=== PATIENT | female | born 1970 | race Caucasian/White ===

== ENCOUNTER 2017-12-22 18:22 | Emergency (ER) | payer OTHER ==
--- NOTE | 2017-12-22 18:38 | PDOC ---
Rapid Medical Evaluation Time Seen by Provider: 12/22/17 18:33 Medical Evaluation: I have performed a brief in-person evaluation of this patient. The patient presents with a chief complaint of: cough, fever, sore throat, pain with deep inspiration x 3 days Pertinent physical exam findings: persist dry cough, tachycardic I have ordered the following: ekg, hcg, cxr The patient will proceed to the ED for further evaluation.
[2017-12-22 18:41] VITALS: BP 116/64; PULSE 101; TEMP 98.4; BMI 20.1
--- NOTE | 2017-12-22 19:23 | PDOC ---
History of Present Illness - General History Source: Patient Exam Limitations: No Limitations - History of Present Illness Initial Comments: 12/22/17 23:25 The patient is a 47 year old female with no significant past medical history who presents to the emergency department for evaluation of chest pain. The patient reports a 3 day history of moderate chest pain. The patient describes the chest pain as a pressure radiating to her back, which is exacerbated with inspiration, ranked 7/10 in severity. She reports throat pain which began yesterday. The patient reports associated symptoms of shortness productive cough (white sputum), fever, nausea, night sweats, and rhinorrhea. She reports t _max of 101 yesterday. She reports taking tylenol with mild alleviation and 2 amoxicillin from [place] for her throat pain. Allergies: NKDA Social history: Patient admits to social alcohol consumption. No reported cigarette or drug use. PCP: Dr. Steele <Mendel Burnette - Last Filed: 12/22/17 23:25> <James Crandall - Last Filed: 12/23/17 00:30> - General Chief Complaint: Respiratory Stated Complaint: COLD SYMPTOMS Time Seen by Provider: 12/22/17 18:33 Past History <Mendel Burnette - Last Filed: 12/22/17 23:25> - Suicide/Smoking/Psychosocial Hx Smoking History: Never smoked Hx Alcohol Use: No Drug/Substance Use Hx: No <James Crandall - Last Filed: 12/23/17 00:30> - Past Medical History Allergies/Adverse Reactions: Allergies Allergy/AdvReac Type Severity Reaction Status Date / Time No Known Allergies Allergy Verified 12/22/17 18:34 Home Medications: Ambulatory Orders Azithromycin [Zithromax 250mg Tablets -] 250 mg PO UTDICT #6 tab 12/23/17 Review of Systems - Review of Systems Able to Perform ROS?: Yes Comments:: CONSTITUTIONAL: (+)fever. no chills, no fatigue EYES: No visual changes ENT: (+)throat pain. No ear pain. CARDIOVASCULAR: (+)chest pain. no palpitations RESPIRATORY: (+)SOB. (+) cough. GI: (+)Nausea. No abdominal pain, no vomiting, no constipation, no diarrhea GENITOURINARY: No dysuria, no frequency, no hematuria MUSCULOSKELETAL: (+)Back pain. No joint pain, no myalgias SKIN: No rash NEURO: No headache <CachorromattMendel - Last Filed: 12/22/17 23:25> *Physical Exam - Vital Signs Last Vital Signs Temp Pulse Resp BP Pulse Ox 98.4 F 101 H 20 116/64 100 12/22/17 18:35 12/22/17 18:35 12/22/17 18:35 12/22/17 18:35 12/22/17 18:35 - Physical Exam Comments: CONSTITUTIONAL: Well-appearing; well-nourished; in no apparent distress HEAD: Normocephalic; atraumatic EYES: PERRL; EOM intact ENMT: (+)Minimal erythema of oropharynx. (+)Enlarged bilateral anterior cervical lymphadenopathy. NECK: Supple; non-tender; no cervical lymphadenopathy CARD: Normal S1, S2; no murmurs, rubs, or gallops RESP: Normal chest excursion with respiration; breath sounds clear and equal bilaterally; no wheezes, rhonchi, or rales CHEST: (+)Reproducible bilateral tenderness to peristernal area. ABD: Soft, non-distended; non-tender; no palpable organomegaly, no palpable hernias EXT: Normal ROM in all four extremities; non-tender to palpation; distal pulses intact SKIN: Warm, dry, no rash NEURO: No focal neurological deficiencies. <CachorromattMendel - Last Filed: 12/22/17 23:25> - Vital Signs Last Vital Signs Temp Pulse Resp BP Pulse Ox 98.4 F 101 H 20 116/64 100 12/22/17 18:35 12/22/17 18:35 12/22/17 18:35 12/22/17 18:35 12/22/17 18:35 <James Crandall - Last Filed: 12/23/17 00:30> Heart Score/ECG Review - ECG Impressions Comment:: EKG was reviewed by Dr. Crandall at 19:00. Impression: Normal sinus rhythm. Normal ECG. Vent. rate: 91 bpm [place] interval: 128 ms QRS duration: 92 ms QT/QTc: 374/460 ms PRT axes: 58 66 34 <Mendel Burnette - Last Filed: 12/22/17 23:25> ED Treatment Course - LABORATORY CBC & Chemistry Diagram: 12/22/17 22:24 12/22/17 22:24 - ADDITIONAL ORDERS Additional order review: Laboratory Results 12/22/17 12/22/17 22:24 19:37 Sodium 140 Potassium 3.4 L Chloride 107 Carbon Dioxide 27 Anion Gap 6 L BUN 6 L Creatinine 0.5 L Creat Clearance w eGFR > 60 Random Glucose 112 H Calcium 8.0 L Total Bilirubin 0.1 L AST 18 ALT 25 Alkaline Phosphatase 94 Creatine Kinase 60 Troponin I < 0.02 Total Protein 6.9 Albumin 3.4 Urine HCG, Qual Negative 12/22/17 20:11 Influenza Types A,B Antigen (LUCY) - Final Nasopharyngeal Swab - Final 12/22/17 22:24 RBC 3.92 MCV 90.0 MCHC 33.9 RDW 14.2 MPV 8.4 Neutrophils % 55.8 Lymphocytes % 26.7 Monocytes % 9.9 Eosinophils % 6.6 H Basophils % 1.0 <Mendel Burnette - Last Filed: 12/22/17 23:25> - LABORATORY CBC & Chemistry Diagram: 12/22/17 22:24 12/22/17 22:24 <James Crandall - Last Filed: 12/23/17 00:30> Medical Decision Making - Medical Decision Making 12/23/17 00:29 Patient is a 47-year-old female who presents with pleuritic atraumatic bilateral chest wall pain productive cough and fever for the past 3 days. In the ER, patient is awake and alert, nontoxic appearing, with normal stable vital signs. EKG is within normal limit without evidence of ischemia. Chest x- ray reveals no evidence of cardiomegaly/infiltrate or effusion. CBC/CMP/cardiac profile negative. I do not suspect ACS or PE at this time. Acute bronchitis suspected. We'll discharge with Zithromax with NSAIDs with outpatient follow-up. <James Crandall - Last Filed: 12/23/17 00:30> *DC/Admit/Observation/Transfer - Attestations Scribe Attestion: Documentation prepared by Mendel Burnette, acting as registered medical assistant for James Crandall MD. <Mendel Burnette - Last Filed: 12/22/17 23:25> - Discharge Dispostion Decision to Admit order: No - Attestations Physician Attestion: 12/23/17 00:29 The documentation was prepared by the scribe under my direct supervision. I have reviewed the documentation which correctly represents the findings, medical decision-making and critical action taken by me. <James Crandall - Last Filed: 12/23/17 00:30> Diagnosis at time of Disposition: Chest wall pain Acute bronchitis Qualifiers: Bronchitis organism: unspecified organism Qualified Code(s): J20.9 - Acute bronchitis, unspecified - Discharge Dispostion Disposition: HOME Condition at time of disposition: Stable - Prescriptions Prescriptions: Azithromycin [Zithromax 250mg Tablets -] 250 mg PO UTDICT #6 tab - Referrals Referrals: Ernie Steele PA [Primary Care Provider] - - Patient Instructions Printed Discharge Instructions: DI for Acute Bronchitis, DI for Atypical Chest Pain - Post Discharge Activity
[2017-12-22 22:36] LABS: EOS % 6.6 % (0-4.5); HEMATOCRIT 35.2 % (32.4-45.2); HEMOGLOBIN 11.9 GM/dL (10.7-15.3); LYMPH % 26.7 % (8-40); MCH 30.5 pg (25.7-33.7); MCHC 33.9 g/dl (32.0-36.0); MEAN PLT VOLUME 8.4 fl (7.5-11.1); MONO % 9.9 % (3.8-10.2); NEUT % 55.8 % (42.8-82.8); PLATELET COUNT 220 K/MM3 (134-434); RBC 3.92 M/mm3 (3.60-5.2); RDW 14.2 % (11.6-15.6); WHITE BLOOD COUNT 4.8 K/mm3 (4.0-10.0)
[2017-12-22 22:52] LABS: ALBUMIN 3.4 g/dl (3.4-5.0); ANION GAP 6 (8-16); BILIRUBIN,TOTAL 0.1 mg/dL (0.2-1.0); BLOOD UREA NITROGEN 6 mg/dL (7-18); CHLORIDE 107 mmol/L (98-107); CO2 27 mmol/L (21-32); CREATININE 0.5 mg/dL (0.55-1.02); GLUCOSE,RANDOM 112 mg/dL (74-106); POTASSIUM 3.4 mmol/L (3.5-5.1); SGOT/AST 18 U/L (15-37); SGPT/ALT 25 U/L (12-78); SODIUM 140 mmol/L (136-145); TOT PROT 6.9 g/dl (6.4-8.2)
[2017-12-22 22:55] LABS: ALK PHOS 94 U/L (45-117)
[2017-12-22] MEDS ORDERED: HEPARIN NA (PORCINE) 5,000 UNITS/ML 1ML VIAL ONE (23:17)
--- NOTE | 2017-12-26 00:40 | EKG ---
Test Reason : Blood Pressure : / mmHG Vent. Rate : 091 BPM Atrial Rate : 091 BPM P-R Int : 128 ms QRS Dur : 092 ms QT Int : 374 ms P-R-T Axes : 058 066 034 degrees QTc Int : 460 ms NORMAL SINUS RHYTHM NORMAL ECG NO PREVIOUS ECGS AVAILABLE Confirmed by BOWEN LA MD ([id number]) on 12/26/2017 12:40:12 AM Referred By: Confirmed By:BOWEN AL MD
== END 2017-12-23 00:32 | disposition home or self-care (01) ==
LOC: JER 18:22
DX: J20.9 Acute bronchitis, unspecified (principal)
CPT/HCPCS: 36415; 71046-TC-FY; 80053; 82550; 84484; 84703; 85025; 87804; 93005; 93010; 99283-25

== ENCOUNTER 2018-08-18 18:08 | Emergency (ER) | payer OTHER ==
[2018-08-18 18:19] VITALS: BMI 20.1
--- NOTE | 2018-08-18 18:39 | PDOC ---
Attending Attestation - HPI HPI: 08/18/18 21:08 Patient is a 48 year old female with no pertinent past medical history who presents to the ED with fevers, chills, body aches and cough that began today. Patient also reports lightheadedness, decreased appetite. Reports her was diagnosed with the flu last week. While in the ED, patients blood pressure has remained low, around 91 currently. - Physicial Exam PE: 08/18/18 21:09 GENERAL: Awake, alert, and fully oriented, in no acute distress HEAD: No signs of trauma LUNGS: Breath sounds equal, clear to auscultation bilaterally. HEART: Regular rate and rhythm, normal S1 and S2, ABDOMEN: Soft, nontender, normoactive bowel sounds. EXTREMITIES: Normal range of motion, no edema. No clubbing or cyanosis. No cords, erythema, or tenderness NEUROLOGICAL: Cranial nerves II through XII grossly intact. Normal speech SKIN: Warm, Dry, normal turgor, no rashes or lesions noted. - Medical Decision Making 08/18/18 21:09 Documentation prepared by Neli Beltrán, acting as medical translator for Christiana Thibodeaux MD. <Neli Beltrán - Last Filed: 08/18/18 21:08> - Resident Resident Name: Luis Fernando Lambert - ED Attending Attestation I have performed the following: I have examined & evaluated the patient, The case was reviewed & discussed with the resident, I agree w/resident's findings & plan, Exceptions are as noted - Medical Decision Making 08/18/18 21:10 Laboratory Tests 08/18/18 08/18/18 08/18/18 18:55 18:57 18:57 WBC 4.8 Hgb 12.4 Hct 36.6 Plt Count 229 Sodium 138 Potassium 4.0 Chloride 106 Carbon Dioxide 25 BUN 5 L Creatinine 0.6 Random Glucose 93 Urine Blood Urine Nitrite Ur Leukocyte Esterase Influenza A (Rapid) Negative Influenza B (Rapid) Negative 08/18/18 19:50 WBC Hgb Hct Plt Count Sodium Potassium Chloride Carbon Dioxide BUN Creatinine Random Glucose Urine Blood Negative Urine Nitrite Negative Ur Leukocyte Esterase Negative Influenza A (Rapid) Influenza B (Rapid) CXR negative UA negative Upon my assessment, the patient is well appearing She is alert and oriented Answers all questions appropriately Will: Reassess BP s/p fluids Consider observation 08/18/18 22:03 Upon re assessment, pt states she feels much better She would like to go home Pt given strict return precautions <Christiana Thibodeaux - Last Filed: 08/18/18 22:04>
[2018-08-18] MEDS ORDERED: SODIUM CHLORIDE 1,000 ML IV STA (18:42)
[2018-08-18] MEDS ORDERED: ACETAMINOPHEN 500 MG TABLET (FP) PO ONE (18:42)
[2018-08-18] MEDS ORDERED: ACETAMINOPHEN 325 MG TABLET (FP) ONE (18:49)
[2018-08-18 19:09] LABS: BASO % 0.3 % (0-2.0); EOS % 0.6 % (0-4.5); HEMATOCRIT 36.6 % (32.4-45.2); HEMOGLOBIN 12.4 GM/dL (10.7-15.3); LYMPH % 7.9 % (8-40); MCH 30.4 pg (25.7-33.7); MCHC 33.9 g/dl (32.0-36.0); MEAN CELL VOLUME 89.6 fl (80-96); MEAN PLT VOLUME 8.8 fl (7.5-11.1); MONO % 7.5 % (3.8-10.2); NEUT % 83.7 % (42.8-82.8); PLATELET COUNT 229 K/MM3 (134-434); RBC 4.09 M/mm3 (3.60-5.2); RDW 14.3 % (11.6-15.6); WHITE BLOOD COUNT 4.8 K/mm3 (4.0-10.0)
[2018-08-18 19:32] LABS: ALBUMIN 3.7 g/dl (3.4-5.0); ALK PHOS 85 U/L (45-117); ANION GAP 8 MMOL/L (8-16); BILIRUBIN,TOTAL 0.2 mg/dL (0.2-1); BLOOD UREA NITROGEN 5 mg/dL (7-18); CALCIUM 8.7 mg/dL (8.5-10.1); CHLORIDE 106 mmol/L (98-107); CO2 25 mmol/L (21-32); CREATININE 0.6 mg/dL (0.55-1.3); GLUCOSE,RANDOM 93 mg/dL (74-106); SGOT/AST 23 U/L (15-37); SGPT/ALT 30 U/L (13-61); SODIUM 138 mmol/L (136-145); TOT PROT 7.2 g/dl (6.4-8.2)
[2018-08-18 19:53] VITALS: BP 96/48; PULSE 86; TEMP 99.8
--- NOTE | 2018-08-18 19:56 | PDOC ---
History of Present Illness - General Chief Complaint: Syncope/Near Syncope Stated Complaint: COLD SYMPTOMS Time Seen by Provider: 08/18/18 18:32 History Source: Patient Exam Limitations: No Limitations - History of Present Illness Initial Comments: 08/18/18 19:51 Patient is 48F with no significant medical history here today complaining of fever, bodyaches, cough that started today. Patient's was diagnosed with the flu last week. Patient reprots feeling dizzy and weak. Endorses decreased po intake, no vomiting. Denies abdominal pain, chest pain, shortness of breath, dysuria. Denies leg swelling. Past History - Past Medical History Allergies/Adverse Reactions: Allergies Allergy/AdvReac Type Severity Reaction Status Date / Time No Known Allergies Allergy Verified 08/18/18 18:15 Home Medications: Ambulatory Orders Azithromycin [Zithromax 250mg Tablets -] 250 mg PO UTDICT #6 tab 12/23/17 COPD: No - Immunization History Immunization Up to Date: Yes - Suicide/Smoking/Psychosocial Hx Smoking History: Never smoked Hx Alcohol Use: No Drug/Substance Use Hx: No Review of Systems - Review of Systems Able to Perform ROS?: Yes Comments:: 08/18/18 19:58 GENERAL/CONSTITUTIONAL: +fever +chills. HEAD, EYES, EARS, NOSE AND THROAT: No change in vision. No sore throat. CARDIOVASCULAR: No chest pain or shortness of breath RESPIRATORY:+cough, no wheezing, or hemoptysis. GASTROINTESTINAL: +nausea, no vomiting, diarrhea or constipation. GENITOURINARY: No dysuria, frequency, or change in urination. MUSCULOSKELETAL: +bodyaches. No neck or back pain. SKIN: No rash NEUROLOGIC: No headache, vertigo, loss of consciousness, or change in strength/ sensation. ENDOCRINE: No increased thirst. No abnormal weight change HEMATOLOGIC/LYMPHATIC: No anemia, easy bleeding, or history of blood clots. ALLERGIC/IMMUNOLOGIC: No hives or skin allergy. *Physical Exam - Vital Signs Last Vital Signs Temp Pulse Resp BP Pulse Ox 100.0 F H 117 H 18 104/34 L 98 08/18/18 18:16 08/18/18 18:16 08/18/18 18:16 08/18/18 18:16 08/18/18 18:16 - Physical Exam Comments: 08/18/18 19:58 GENERAL: Awake, alert, and fully oriented, in no acute distress HEAD: No signs of trauma, normocephalic, atraumatic EYES: PERRLA, EOMI, sclera anicteric, conjunctiva clear ENT: Auricles normal inspection, hearing grossly normal, nares patent, oropharynx clear without exudates. Moist mucosa NECK: Normal ROM, supple, no lymphadenopathy, JVD, or masses LUNGS: No distress, speaks full sentences, clear to auscultation bilaterally HEART: Tachycardic, no m/r/g ABDOMEN: Soft, nontender, normoactive bowel sounds. No guarding, no rebound. No masses EXTREMITIES: Normal inspection, Normal range of motion, no edema. No clubbing or cyanosis. NEUROLOGICAL: Cranial nerves II through XII grossly intact. Normal speech, normal gait, no focal sensorimotor deficits SKIN: Warm, Dry, normal turgor, no rashes or lesions noted. Moderate Sedation - Procedure Monitoring Vital Signs: Procedure Monitoring Vital Signs Temperature 100.0 F H 08/18/18 18:16 Pulse Rate 117 H 08/18/18 18:16 Respiratory Rate 18 08/18/18 18:16 Blood Pressure 104/34 L 08/18/18 18:16 O2 Sat by Pulse Oximetry (%) 98 08/18/18 18:16 ED Treatment Course - LABORATORY CBC & Chemistry Diagram: 08/18/18 18:57 08/18/18 18:57 - ADDITIONAL ORDERS Additional order review: Laboratory Results 08/18/18 08/18/18 18:57 18:57 Sodium 138 Potassium 4.0 Chloride 106 Carbon Dioxide 25 Anion Gap 8 BUN 5 L Creatinine 0.6 Creat Clearance w eGFR > 60 Random Glucose 93 Lactic Acid 1.5 Calcium 8.7 Total Bilirubin 0.2 AST 23 ALT 30 Alkaline Phosphatase 85 Total Protein 7.2 Albumin 3.7 08/18/18 18:57 RBC 4.09 MCV 89.6 MCHC 33.9 RDW 14.3 MPV 8.8 Neutrophils % 83.7 H D Lymphocytes % 7.9 L D Monocytes % 7.5 Eosinophils % 0.6 D Basophils % 0.3 - RADIOLOGY Radiology Studies Ordered: Category Date Time Status CHEST X-RAY PORTABLE* [RAD] Stat Radiology 08/18/18 18:41 Taken - Medications Given in the ED: ED Medications Discontinued Medications Generic Name Dose Route Start Last Admin Trade Name Freq PRN Reason Stop Dose Admin Acetaminophen 975 mg 08/18/18 18:42 08/18/18 19:10 Tylenol - PO 08/18/18 18:43 975 mg ONCE ONE Administration Sodium Chloride 1,000 mls @ 1,000 mls/hr 08/18/18 18:42 08/18/18 19:09 Normal Saline - IV 08/18/18 19:41 1,000 mls/hr ASDIR STA Administration Medical Decision Making - Medical Decision Making 08/18/18 19:59 Patient is 48F here today with flu-like symptoms. Vitals notable for tachycardia , fever, hypotension. Suspect viral syndrome, patient appears well, but septic workup initiated. Will treat with fluids, tylenol. CBC shows neutrophillic shift, CMP normal, lactate normal, flu negative. Has not received fluids yet, will revitalize and dispo. CXR clear 08/18/18 21:46 BP shows 95/64, MAP 74. Will empirically treat with tamiflu. Shared decision making done with patient, wishes to go home. Considered admission for fever of unknown source, but patient appears clinically well and has stable BP with appropriately sized cuff. Given strict return precautions. *DC/Admit/Observation/Transfer Diagnosis at time of Disposition: Influenza - Discharge Dispostion Disposition: HOME Condition at time of disposition: Good Decision to Admit order: No - Referrals Referrals: Ernie Steele PA [Primary Care Provider] - - Patient Instructions Printed Discharge Instructions: DI for Influenza -- Adult Additional Instructions: Please return immediately if you have any new, worsening or concerning symptoms , especially fever, weakness and shortness of breath. Please follow up with your primary care doctor this week. - Post Discharge Activity Forms/Work/School Notes: Back to Work
[2018-08-18 20:11] LABS: URINE APPEARANCE CLEAR; URINE BILIRUBIN NEGATIVE (<2.0 mg/dL); URINE COLOR YELLOW; URINE GLUCOSE (UA) NEGATIVE (NEGATIVE); URINE KETONE TRACE (NEGATIVE); URINE LEUK ESTERASE NEGATIVE (NEGATIVE); URINE NITRITE NEGATIVE (NEGATIVE); URINE PROTEIN NEGATIVE (NEGATIVE); URINE UROBILINOGEN NEGATIVE mg/dL (0.2-1.0)
[2018-08-18] MEDS ORDERED: OSELTAMIVIR PHOSPHATE 75 MG CAPSULE PO ONE (21:50)
[2018-08-18] MEDS ORDERED: OSELTAMIVIR PHOSPHATE 75 MG CAPSULE ONE (21:58)
== END 2018-08-18 22:07 | disposition home or self-care (01) ==
LOC: JER 18:08
DX: J11.1 Influenza due to unidentified influenza virus with other respiratory manifestations (principal)
CPT/HCPCS: 36415; 71045-TC-FY; 80053; 81003; 83605; 85025; 87040; 87086; 87804; 99284-25; J7030

== ENCOUNTER 2019-08-31 16:50 | Emergency (ER) | payer OTHER ==
[2019-08-31 17:10] VITALS: BP 114/52; PULSE 89; TEMP 98.2; BMI 22.3
--- NOTE | 2019-08-31 17:22 | PDOC ---
History of Present Illness - General Chief Complaint: Cold Symptoms Stated Complaint: COLD SYMPTOMS Time Seen by Provider: 08/31/19 17:09 History Source: Patient - History of Present Illness Timing/Duration: reports: yesterday Past History - Past Medical History Allergies/Adverse Reactions: Allergies Allergy/AdvReac Type Severity Reaction Status Date / Time No Known Allergies Allergy Verified 08/18/18 18:15 Home Medications: Ambulatory Orders Azithromycin [Zithromax 250mg Tablets -] 250 mg PO UTDICT #6 tab 12/23/17 Oseltamivir Phosphate [Tamiflu -] 75 mg PO DAILY #10 capsule 08/18/18 COPD: No - Immunization History Immunization Up to Date: Yes - Psycho Social/Smoking Cessation Hx Smoking History: Never smoked Have you smoked in the past 12 months: No Information on smoking cessation initiated: No Hx Alcohol Use: No Drug/Substance Use Hx: No Review of Systems - Review of Systems Constitutional: No: Chills, Fever HEENTM: Yes: Ear Pain, Throat Pain Respiratory: No: Cough *Physical Exam - Vital Signs Last Vital Signs Temp Pulse Resp BP Pulse Ox 98.2 F 89 16 114/52 L 99 08/31/19 17:08 08/31/19 17:08 08/31/19 17:08 08/31/19 17:08 08/31/19 17:08 - Physical Exam General Appearance: Yes: Appropriately Dressed. No: Apparent Distress HEENT: positive: Normal ENT Inspection, Normal Voice, TMs Normal, Pharynx Normal. negative: Scleral Icterus (R), Scleral Icterus (L) Neck: positive: Supple. negative: Lymphadenopathy (R), Lymphadenopathy (L) Respiratory/Chest: negative: Respiratory Distress Integumentary: positive: Dry, Warm Neurologic: positive: Fully Oriented, Alert, Normal Mood/Affect Medical Decision Making - Medical Decision Making 08/31/19 17:19 49-year-old female no significant history here with sore throat with L ear pain and headache x2 days. No fever or chills see exam M/l viral pharyngitis Exam wnl Dc w/ OTC meds prn pain Discharge - Discharge Information Problems reviewed: Yes Clinical Impression/Diagnosis: Sore throat Condition: Stable Disposition: HOME - Follow up/Referral - Patient Discharge Instructions Patient Printed Discharge Instructions: DI for Viral Upper Respiratory Infection -- Adult - Post Discharge Activity
== END 2019-08-31 17:30 | disposition home or self-care (01) ==
LOC: JERFT 16:50
DX: J02.9 Acute pharyngitis, unspecified (principal); B97.89 Other viral agents as the cause of diseases classified elsewhere
CPT/HCPCS: 99281-25

== ENCOUNTER 2021-05-04 17:52 | Emergency (ER) | payer OTHER ==
[2021-05-04 18:10] VITALS: BP 119/74; PULSE 80; TEMP 98; BMI 21.1
[2021-05-04] MEDS ORDERED: KETOROLAC TROMETHAMINE 30 MG/1 ML VIAL IM ONE (18:53)
[2021-05-04] MEDS ORDERED: KETOROLAC TROMETHAMINE 30 MG/1 ML VIAL ONE (18:54)
== END 2021-05-04 19:20 | disposition home or self-care (01) ==
LOC: JER 17:52 → JERFT 17:52
PROC: 3E0233Z Introduction of Anti-inflammatory into Muscle, Percutaneous Approach (ICD-10-PCS; principal; 2021-05-04)
DX: S46.819A Strain of other muscles, fascia and tendons at shoulder and upper arm level, unspecified arm, initial encounter (principal); X50.0XXA Overexertion from strenuous movement or load, initial encounter
CPT/HCPCS: 96372; 99284-25

== ENCOUNTER 2021-11-30 13:42 | Emergency (ER) | payer OTHER ==
[2021-11-30 13:51] VITALS: BP 134/72; PULSE 74; TEMP 97.8; BMI 20.3
[2021-11-30] MEDS ORDERED: KETOROLAC TROMETHAMINE 30 MG/1 ML VIAL IM ONE (15:01)
[2021-11-30] MEDS ORDERED: KETOROLAC TROMETHAMINE 30 MG/1 ML VIAL ONE (15:10)
== END 2021-11-30 17:33 | disposition home or self-care (01) ==
LOC: JERFT 13:42
PROC: 3E023GC Introduction of Other Therapeutic Substance into Muscle, Percutaneous Approach (ICD-10-PCS; principal; 2021-11-30)
DX: M54.50 Low back pain, unspecified (principal)
CPT/HCPCS: 72131-TC; 99284-25